=== PATIENT | male | born 1970 | race Caucasian/White ===

== ENCOUNTER 2016-11-26 00:38 | Emergency (ER) | payer OTHER ==
[~2016-11-26] VITALS: Ht 182.9 cm; Wt 152.7 kg
[~2016-11-26 00:38] MED LIST: ASPIRIN325 MG PO; LITE COAT ASPI325 M1 PO; NOHOMEMEDS; VALTREX50 MG/ML PO; VITAMIN PACK PO
[2016-11-26 01:10] LABS: ADD MIUA? YES; BILIRUBIN NEGATIVE; BLOOD SMALL; COLOR AMBER ((YELLOW)); GLUCOSE (STRIP) NEGATIVE; KETONES NEGATIVE; LEUKOCYTES NEGATIVE; NITRITE NEGATIVE; PROTEIN (STRIP) 30
[2016-11-26 01:19] LABS: BACTERIA RARE /HPF; EPITHELIAL CELLS NONE SEEN /HPF; MUCUS 1+ /LPF; WHITE BLOOD CELLS 0-5 /HPF (0-5)
[2016-11-26 01:26] LABS: HEMATOCRIT 52.2 % (38.0-50.0); MCH 27.8 PG (29.0-34.0); MCHC 32.6 G/DL (30.0-36.0); MCV 85.4 FL (86-99); MEAN PLAT.VOLUME 10.7 uM^3 (9.0-12.4); PLATELET COUNT 289 K/uL (156-360); RBC DIS.WIDTH-CV 17.7 % (11.8-14.6); RBC DIS.WIDTH-SD 50.4 % (39-53); RED BLOOD COUNT 6.11 M/uL (4.00-5.50); WHITE BLOOD COUNT 12.6 K/uL (4.1-10.2)
[2016-11-26 01:36] LABS: CHLORIDE 102 mEq/L (99-109); POTASSIUM 4.2 mEq/L (3.7-5.4); SODIUM 139 mEq/L (136-147)
[2016-11-26 01:37] LABS: GLUCOSE 120 mg/dL (70-99)
[2016-11-26 01:39] LABS: ANION GAP 10 MEQ/L (2-14)
[2016-11-26 01:41] LABS: GFR ESTIMATE (CALCULATED) 54 mL/min/
[2016-11-26 01:42] LABS: UREA NITROGEN (BUN) 13 mg/dL (9-23)
[2016-11-26 06:01] VITALS: BP 177/107
== END 2016-11-26 06:12 | disposition home or self-care (01) ==
LOC: EME 00:38
DX: K92.2 Gastrointestinal hemorrhage, unspecified (principal); R31.9 Hematuria, unspecified
CPT/HCPCS: 74176; 80048; 81003; 85027; 86850; 86900; 86901; 99281; 99284

== ENCOUNTER 2016-12-04 13:04 | Inpatient (IN) | payer OTHER ==
[~2016-12-04] VITALS: Ht 182.9 cm; Wt 150.1 kg
[2016-12-04 14:30] LABS: HEMATOCRIT 53.1 % (38.0-50.0); MCH 27.8 PG (29.0-34.0); MCHC 32.4 G/DL (30.0-36.0); MCV 85.9 FL (86-99); MEAN PLAT.VOLUME 10.3 uM^3 (9.0-12.4); PLATELET COUNT 310 K/uL (156-360); RBC DIS.WIDTH-CV 17.3 % (11.8-14.6); RBC DIS.WIDTH-SD 50.4 % (39-53); RED BLOOD COUNT 6.18 M/uL (4.00-5.50); WHITE BLOOD COUNT 10.7 K/uL (4.1-10.2)
[2016-12-04 14:50] LABS: CHLORIDE 105 mEq/L (99-109); POTASSIUM 4.7 mEq/L (3.7-5.4); SODIUM 139 mEq/L (136-147)
[2016-12-04 14:52] LABS: GLUCOSE 92 mg/dL (70-99)
[2016-12-04 14:54] LABS: ANION GAP 9 MEQ/L (2-14)
[2016-12-04 14:56] LABS: GFR ESTIMATE (CALCULATED) > 59 mL/min/
[2016-12-04 14:57] LABS: UREA NITROGEN (BUN) 12 mg/dL (9-23)
[2016-12-04] MEDS ORDERED: REQUIP2 MG PO (15:17)
[2016-12-04] MEDS ORDERED: REQUIP1 MG PO (15:17)
[2016-12-04 17:54] VITALS: BP 136/76
[2016-12-04 20:05] LABS: HEMATOCRIT 51.7 % (38.0-50.0); MCV 87.2 FL (86-99)
[2016-12-05 00:24] VITALS: BP 120/72
[2016-12-05 05:58] LABS: HEMATOCRIT 48.6 % (38.0-50.0); MCHC 33.1 G/DL (30.0-36.0); MCV 87.4 FL (86-99); MEAN PLAT.VOLUME 10.9 uM^3 (9.0-12.4); PLATELET COUNT 274 K/uL (156-360); RBC DIS.WIDTH-SD 52.9 % (39-53); RED BLOOD COUNT 5.56 M/uL (4.00-5.50); WHITE BLOOD COUNT 8.8 K/uL (4.1-10.2)
[2016-12-05 06:20] LABS: ANION GAP 7 MEQ/L (2-14); CHLORIDE 105 MEQ/L (99-109); GFR ESTIMATE (CALCULATED) > 59 mL/min/; GLUCOSE 83 mg/dL (70-99); POTASSIUM 4.3 MEQ/L (3.7-5.4); SAMPLE HEMOLYSIS CHECK 0; SAMPLE ICTERIC CHECK 0; SAMPLE LIPEMIA CHECK 0; SODIUM 138 MEQ/L (136-147); UREA NITROGEN (BUN) 11 mg/dL (9-23)
[2016-12-05 07:19] LABS: ADD MIUA? NO; BILIRUBIN NEGATIVE; BLOOD NEGATIVE; COLOR YELLOW ((YELLOW)); GLUCOSE (STRIP) NEGATIVE; KETONES 5; LEUKOCYTES NEGATIVE; NITRITE NEGATIVE; PROTEIN (STRIP) NEGATIVE; SPECIFIC GRAVITY 1.027 (1.000-1.030); UCUL ADDED? NO
[2016-12-05 07:25] VITALS: BP 141/96
[2016-12-05 11:34] VITALS: BP 142/89
[2016-12-05 14:53] VITALS: BP 170/80
[2016-12-05 15:10] VITALS: BP 144/81
[2016-12-05 17:48] LABS: MCV 87.1 FL (86-99)
[2016-12-06 00:33] VITALS: BP 118/57
[2016-12-06 07:03] LABS: HEMATOCRIT 49.2 % (38.0-50.0); MCH 27.8 PG (29.0-34.0); MCHC 31.9 G/DL (30.0-36.0); MCV 87.1 FL (86-99); MEAN PLAT.VOLUME 10.8 uM^3 (9.0-12.4); PLATELET COUNT 277 K/uL (156-360); RBC DIS.WIDTH-CV 16.4 % (11.8-14.6); RBC DIS.WIDTH-SD 51.2 % (39-53); RED BLOOD COUNT 5.65 M/uL (4.00-5.50); WHITE BLOOD COUNT 7.7 K/uL (4.1-10.2)
[2016-12-06 07:10] LABS: PROTHROMBIN TIME 11.1 SEC (10.2-12.9)
[2016-12-06 07:32] LABS: ALKALINE PHOSPHATASE 34 IU/L (3-129); ANION GAP 9 MEQ/L (2-14); CHLORIDE 104 MEQ/L (99-109); GFR ESTIMATE (CALCULATED) > 59 mL/min/; POTASSIUM 4.2 MEQ/L (3.7-5.4); SAMPLE HEMOLYSIS CHECK 0; SAMPLE ICTERIC CHECK 0; SAMPLE LIPEMIA CHECK 0; SODIUM 138 MEQ/L (136-147); TOTAL BILIRUBIN 1.4 MG/DL (0.0-1.0); UREA NITROGEN (BUN) 9 mg/dL (9-23)
[2016-12-06 07:42] LABS: GLUCOSE 133 mg/dL (70-99)
[2016-12-06 07:54] VITALS: BP 135/71
[2016-12-06 08:10] LABS: ANION GAP 8 MEQ/L (2-14); CHLORIDE 105 MEQ/L (99-109); GFR ESTIMATE (CALCULATED) > 59 mL/min/; POTASSIUM 3.8 MEQ/L (3.7-5.4); SAMPLE HEMOLYSIS CHECK 0; SAMPLE ICTERIC CHECK 0; SAMPLE LIPEMIA CHECK 0; SODIUM 137 MEQ/L (136-147); UREA NITROGEN (BUN) 9 mg/dL (9-23)
[2016-12-06 08:11] LABS: GLUCOSE 135 mg/dL (70-99)
[2016-12-06 11:47] VITALS: BP 136/83
[2016-12-06 12:10] LABS: POINT-OF-CARE METER ID UU13113774
[2016-12-06 16:55] VITALS: BP 136/83
[2016-12-06 20:45] VITALS: BP 140/84
[2016-12-06 21:39] LABS: HEMATOCRIT 47.3 % (38.0-50.0); MCV 87.3 FL (86-99)
[2016-12-07] VITALS (7 sets, daily range): BP systolic 109–137; BP diastolic 57–79
[2016-12-07 06:31] LABS: HEMATOCRIT 46.5 % (38.0-50.0); MCH 27.9 PG (29.0-34.0); MCHC 31.8 G/DL (30.0-36.0); MCV 87.7 FL (86-99); MEAN PLAT.VOLUME 10.6 uM^3 (9.0-12.4); PLATELET COUNT 316 K/uL (156-360); RBC DIS.WIDTH-CV 15.8 % (11.8-14.6); WHITE BLOOD COUNT 15.3 K/uL (4.1-10.2)
[2016-12-07 07:27] LABS: ANION GAP 8 MEQ/L (2-14); CHLORIDE 102 MEQ/L (99-109); GFR ESTIMATE (CALCULATED) 58 mL/min/; GLUCOSE 169 mg/dL (70-99); POTASSIUM 5.7 MEQ/L (3.7-5.4); SAMPLE HEMOLYSIS CHECK 0; SAMPLE ICTERIC CHECK 0; SAMPLE LIPEMIA CHECK 0; SODIUM 136 MEQ/L (136-147); UREA NITROGEN (BUN) 12 mg/dL (9-23)
[2016-12-07 17:52] LABS: HEMATOCRIT 45.1 % (38.0-50.0); MCV 88.3 FL (86-99)
[2016-12-08 04:05] VITALS: BP 156/83
[2016-12-08 06:25] LABS: HEMATOCRIT 45.2 % (38.0-50.0); MCHC 32.7 G/DL (30.0-36.0); MCV 88.5 FL (86-99); PLATELET COUNT 286 K/uL (156-360); RBC DIS.WIDTH-CV 16.2 % (11.8-14.6); RBC DIS.WIDTH-SD 52.5 % (39-53); RED BLOOD COUNT 5.11 M/uL (4.00-5.50); WHITE BLOOD COUNT 12.9 K/uL (4.1-10.2)
[2016-12-08 06:55] LABS: ALKALINE PHOSPHATASE 34 IU/L (3-129); ANION GAP 7 MEQ/L (2-14); CHLORIDE 102 MEQ/L (99-109); GFR ESTIMATE (CALCULATED) > 59 mL/min/; GLUCOSE 122 mg/dL (70-99); POTASSIUM 4.6 MEQ/L (3.7-5.4); SAMPLE HEMOLYSIS CHECK 0; SAMPLE ICTERIC CHECK 0; SAMPLE LIPEMIA CHECK 0; SODIUM 137 MEQ/L (136-147); UREA NITROGEN (BUN) 10 mg/dL (9-23)
[2016-12-08 06:57] LABS: TOTAL BILIRUBIN 1.1 MG/DL (0.0-1.0)
[2016-12-08 07:42] VITALS: BP 140/73
[2016-12-08 11:39] VITALS: BP 139/73
[2016-12-08 15:54] VITALS: BP 136/73
[2016-12-08 18:40] LABS: HEMATOCRIT 45.2 % (38.0-50.0); MCV 88.5 FL (86-99)
[2016-12-08 20:45] VITALS: BP 160/87
[2016-12-08 23:37] VITALS: BP 146/96
[2016-12-09 06:52] LABS: HEMATOCRIT 43.7 % (38.0-50.0); MCH 29.1 PG (29.0-34.0); MCV 88.5 FL (86-99); MEAN PLAT.VOLUME 10.4 uM^3 (9.0-12.4); PLATELET COUNT 248 K/uL (156-360); RBC DIS.WIDTH-CV 15.9 % (11.8-14.6); RBC DIS.WIDTH-SD 51.2 % (39-53); RED BLOOD COUNT 4.94 M/uL (4.00-5.50); WHITE BLOOD COUNT 10.3 K/uL (4.1-10.2)
[2016-12-09 07:17] LABS: ANION GAP 6 MEQ/L (2-14); CHLORIDE 103 MEQ/L (99-109); GFR ESTIMATE (CALCULATED) > 59 mL/min/; POTASSIUM 4.5 MEQ/L (3.7-5.4); SAMPLE HEMOLYSIS CHECK 0; SAMPLE ICTERIC CHECK 0; SAMPLE LIPEMIA CHECK 0; SODIUM 138 MEQ/L (136-147); UREA NITROGEN (BUN) 11 mg/dL (9-23)
[2016-12-09 07:18] LABS: GLUCOSE 86 mg/dL (70-99)
[2016-12-09 08:04] VITALS: BP 171/88
[2016-12-09 16:21] VITALS: BP 142/80
[2016-12-09 20:04] LABS: HEMATOCRIT 43.5 % (38.0-50.0); MCV 87.9 FL (86-99)
[2016-12-09 23:13] VITALS: BP 132/67
[2016-12-10] MEDS ORDERED: OXYCODONE HCL5 MG PO (05:53)
[2016-12-10 08:19] VITALS: BP 175/100
[2016-12-10 09:26] VITALS: BP 161/90
[2016-12-10] MEDS ORDERED: LOVENOX40 MG/0.4 SC (11:21)
[2016-12-10] MEDS ORDERED: ELIQUIS2.5 MG PO (11:40)
== END 2016-12-10 12:29 | disposition home or self-care (01) | DRG 330 ==
LOC: EME 13:04 → EDOF 15:27 → 5EAST 15:27 → ENRESERV 15:31 → CANRESERV 16:09 → ENRESERV 16:09 → 5EAST 17:31 → ENPENDDIS 12-10 → 5EAST 12-10 12:29
PROVIDERS: Internal Medicine; Surgery
PROC: 0DBN0ZZ Excision of Sigmoid Colon, Open Approach (ICD-10-PCS; principal; 2016-12-06)
DX: C20 Malignant neoplasm of rectum (principal); K92.2 Gastrointestinal hemorrhage, unspecified; Z68.41 Body mass index [BMI] 40.0-44.9, adult; E87.5 Hyperkalemia; E66.01 Morbid (severe) obesity due to excess calories; N40.0 Benign prostatic hyperplasia without lower urinary tract symptoms; G25.81 Restless legs syndrome; H91.91 Unspecified hearing loss, right ear; D72.829 Elevated white blood cell count, unspecified; K66.0 Peritoneal adhesions (postprocedural) (postinfection)
CPT/HCPCS: 74177; 80048; 80053; 81003; 82378; 82948; 85014; 85018; 85027; 85610; 86850; 86900; 86901; 88302; 88305; 88309; 93005; 94799; 99281; 99285; J0330; J1100; J1170; J1650; J2001; J2250; J2405; J2710; J2795; J3010; J3475; J7030; J7042; P9045

== ENCOUNTER 2017-08-10 18:52 | Emergency (ER) | payer BC ==
[~2017-08-10] VITALS: Ht 182.9 cm; Wt 151.7 kg
[~2017-08-10 18:52] MED LIST changes: +ELIQUIS2.5 MG PO; +LOVENOX40 MG/0.4 SC; +OXYCODONE HCL5 MG PO; +REQUIP1 MG PO; +REQUIP2 MG PO
[2017-08-10 19:21] LABS: APPEARANCE CLEAR ((CLEAR)); BILIRUBIN NEGATIVE; BLOOD NEGATIVE; COLOR YELLOW ((YELLOW)); GLUCOSE (STRIP) NEGATIVE; KETONES NEGATIVE; LEUKOCYTES NEGATIVE; NITRITE NEGATIVE; PROTEIN (STRIP) NEGATIVE; SPECIFIC GRAVITY 1.017 (1.000-1.030); UROBILINOGEN 0.2 MG/DL (0.2-1.0)
[2017-08-10 19:36] LABS: HEMATOCRIT 50.7 % (38.0-50.0); HEMOGLOBIN 17.5 G/DL (12.5-16.6); MCH 29.4 PG (29.0-34.0); MCHC 34.5 G/DL (30.0-36.0); MCV 85.2 FL (86-99); PLATELET COUNT 215 K/uL (156-360); RBC DIS.WIDTH-CV 14.1 % (11.8-14.6); RBC DIS.WIDTH-SD 43.8 % (39-53); RED BLOOD COUNT 5.95 M/uL (4.00-5.50); WHITE BLOOD COUNT 9.6 K/uL (4.1-10.2)
[2017-08-10 19:47] LABS: ALBUMIN 4.1 g/dL (3.2-4.8); CHLORIDE 104 mEq/L (99-109); POTASSIUM 4.2 mEq/L (3.7-5.4); SODIUM 140 mEq/L (136-147)
[2017-08-10 19:49] LABS: GLUCOSE 105 mg/dL (70-99)
[2017-08-10 19:51] LABS: TOTAL BILIRUBIN 0.4 mg/dL (0.0-1.0)
[2017-08-10 19:53] LABS: ALKALINE PHOSPHATASE 61 IU/L (3-129); CREATININE 1.2 mg/dL (0.6-1.3); GFR ESTIMATE (CALCULATED) > 59 mL/min/ (58.99-99999)
[2017-08-10 19:54] LABS: UREA NITROGEN (BUN) 16 mg/dL (9-23)
[2017-08-10 19:55] LABS: AST (GOT) 16 IU/L (2-34)
[2017-08-10 19:56] LABS: ALT (GPT) 27 IU/L (3-49); LIPASE 17 U/L (1.0-51.0)
[2017-08-10] MEDS ORDERED: IMODIUM A-D2 M2 PO (21:07)
[2017-08-10 21:27] VITALS: BP 147/89
== END 2017-08-10 21:27 | disposition home or self-care (01) ==
LOC: EME 18:52
PROVIDERS: Nurse Practitioner Family
DX: B34.9 Viral infection, unspecified (principal); R19.7 Diarrhea, unspecified; K21.9 Gastro-esophageal reflux disease without esophagitis; Z85.038 Personal history of other malignant neoplasm of large intestine
CPT/HCPCS: 74177; 80053; 81003; 83690; 85027; 87493; 99281; 99285; J7030